=== PATIENT | female | born 1995 | race Caucasian/White ===

== ENCOUNTER 2017-11-17 17:06 | Emergency (ER) | payer BC ==
[~2017-11-17] VITALS: Ht 177.8 cm; Wt 64.0 kg
--- NOTE | 2017-11-17 17:32 | NUR ---
PT REC'D TO ER C/O FELL RT KNEE ABRASION NOTED CLEANED AND BACTRIN APPLIED TO SITE
[2017-11-17] MEDS ORDERED: TDAP [DIPH/PERTUSSIS/TET] 0.5 ML VIAL IM ONE ×2 (17:47→18:00)
--- NOTE | 2017-11-17 17:51 | NUR ---
TOP OF RT FOOT ABRASION NOTED TETEUS GIVEN LEFT DELTOID TOLEERATED WELL
--- NOTE | 2017-11-17 17:51 | NUR ---
PT SENT TOO XRAY
[2017-11-17] MEDS ORDERED: BACI/NEOM/POLY B OINT PKT 1 UDPKT PACKET TP ONE (18:00)
[2017-11-17 18:24] VITALS: BP 131/85
== END 2017-11-17 18:26 | disposition home or self-care (01) ==
LOC: ER 17:08
DX: S91.312A Laceration without foreign body, left foot, initial encounter (principal); S00.03XA Contusion of scalp, initial encounter; S60.418A Abrasion of other finger, initial encounter; W01.198A Fall on same level from slipping, tripping and stumbling with subsequent striking against other object, initial encounter; Y93.89 Activity, other specified; Y92.89 Other specified places as the place of occurrence of the external cause; Y99.8 Other external cause status
CPT/HCPCS: 70450; 84703; 90471; 90715; 99285; A4606; A6402; Z7610